=== PATIENT | male | born 1930 | race Caucasian/White ===

== ENCOUNTER → 2017-06-01 | Outpatient (CLI) | payer MEDICARE ==
[2016-12-02 13:14] VITALS: BMI 25.4
[~2017-06-01] MED LIST: AMA100; AMLO-98 PO; AMOX-362 PO; ASP81 PO; ASPI81TA94 PO; ATEN-1 PO; AZIT-18 PO; BACDS PO; CEFD300C35 PO; CEFU250T11 PO; CEP500 PO; CLIN300C99 PO; FURO-45 PO; FURO40TA35 PO; HYDR-4309 PO; INDO-1 PO; LEVE250T42 PO; LEVE500T73 PO; LEVO50TA80 PO; LEVO75TA73 PO; LIS20 PO; MELA3TAB31 PO; METO100T20 PO; MULT-1335 PO; OMEP40CA45 PO; PANT40TA65 PO; PRA20 PO; PRAV40TA78 PO; PROP60TA16 PO; SPIR25TA76 PO; SPIR25TA78 PO; TAM4; TERA5CAP77 PO; TRA50 PO; TRIH2TAB17 PO; ZIA10 PO; [UNRECOGNIZED DRUG - CODE] PO
== END ==
LOC: SPU 08:00
DX: N31.9 Neuromuscular dysfunction of bladder, unspecified (principal)
CPT/HCPCS: 51702